=== PATIENT | male | born 1955 | race Caucasian/White ===

== ENCOUNTER 2016-11-12 15:56 | Observation (INO) | payer BC, OTHER ==
[~2016-11-12] VITALS: Ht 190.5 cm; Wt 120.8 kg
[2016-11-12] MEDS ORDERED: ALUMINUM/MAGNESIUM SUSP 30 ML UDC PO STA (16:06)
[2016-11-12] MEDS ORDERED: ASPIRIN 81 MG CHEW PO STA (16:06)
--- NOTE | 2016-11-12 16:13 | EMERGENCY ROOM VISIT NOTE ---
History Report prepared by Linh: Jaya Anderson Under the Supervision of: Dr. Lazaro David D.O. 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 Denies sob, nausea , lightheaded. [place] in 2001. History of Present Illness The patient is a 61 year old male who presents to the Emergency Room with complaints of intermittent left-sided chest pain that started an hour and a half ago. He describes the pain as a dull ache. The patient is here for a conference, and says that he was just waiting for lunch when the pain came on. He says that he did not do anything out of the ordinary today. He had a heart attack in 2001, and he says that the pain today is totally different than his pain during his heart attack. The pain during the heart attack was all in his neck. He notes that nothing changes his pain today. The patient says he has been mostly healthy since the heart attack, and has not taken nitro in 10 years. He has hardly gotten any chest pain since the heart attack. The patient' s last workup on his heart was more than a year ago, and it was done at [place]. He denies any nausea, shortness of breath, or leg pain or leg swelling. He took his daily medications this morning, but he did not take any medication for his chest pain. The patient has no chronic medical problems, other than a low platelet count. He drinks occasional alcohol, and is an ex-smoker. His last EKG was in July. Source of History: patient Onset: 1.5 hours ago Position: chest (left) Quality: ache, dull Timing: intermittent Associated Symptoms: No SOB, No vomiting Note: Associated symptoms: Denies leg pain or swelling. Review of Systems See HPI for pertinent positives & negatives. A total of 10 systems reviewed and were otherwise negative. Past Medical & Surgical Medical Problems: (1) Heart attack (2) Low platelet count Family History Heart disease Hypertension Social History Smoking Status: Former Smoker Smokeless Tobacco Use: No Alcohol Use: occasionally Housing Status: lives alone Occupation Status: employed Current/Historical Medications Scheduled Aspirin (Aspirin Ec), 81 MG PO DAILY Atenolol (Tenormin), 25 MG PO BID Atorvastatin (Lipitor), 40 MG PO DAILY Clopidogrel (Plavix), 75 MG PO DAILY Hydrochlorothiazide (Hydrochlorothiazide), 12.5 MG PO DAILY Isosorbide Mononitrate Ext Rel (Imdur Ext Rel), 1 TAB PO QAM Lisinopril (Zestril), 10 MG PO DAILY Omeprazole (Prilosec), 20 MG PO DAILY Paroxetine (Paxil), 20 MG PO DAILY Allergies Uncoded Allergies: BEE STINGS (Allergy, Intermediate, SWELLING, 11/12/16) Physical Exam Vital Signs Date Time Temp Pulse Resp B/P Pulse Ox O2 Delivery O2 Flow Rate FiO2 11/12/16 19:13 63 17 131/70 97 Room Air 11/12/16 17:13 61 116/71 96 Room Air 11/12/16 16:30 101/67 96 Room Air 11/12/16 16:19 62 19 124/70 96 Room Air 11/12/16 16:19 Room Air 11/12/16 16:19 Room Air 11/12/16 15:59 36.8 69 18 172/96 96 Room Air Physical Exam GENERAL: Patient is awake, alert, and in no acute distress. Patient is resting comfortably and showing no signs of anxiety EYES: The conjunctivae are clear. The pupils are round and reactive. EARS, NOSE, MOUTH AND THROAT: The nose is without any evidence of any deformity. Mucous membranes are moist tongue is midline NECK: The neck is nontender and supple. RESPIRATORY: Normal respiratory effort is noted there is no evidence of wheezing rhonchi or rales CARDIOVASCULAR: Regular rate and rhythm noted there no murmurs rubs or gallops normal S1 normal S2 GASTROINTESTINAL: The abdomen is soft. Bowel sounds are present in all quadrants. Abdomen is nontender MUSCULOSKELETAL/EXTREMITIES: There is no evidence of gross deformity full range of motion is noted in the hips and shoulders SKIN: Pedal edema bilaterally. NEUROLOGIC: Patient is awake alert and oriented x3. Medical Decision & Procedures ER Provider Diagnostic Interpretation: X-ray results as stated below per interpretation by me and the radiologist. CHEST ONE VIEW PORTABLE CLINICAL HISTORY: Chest pain. COMPARISON STUDY: No previous studies for comparison. FINDINGS: There is no pneumothorax or pleural effusion. There is mild enlargement of the cardiac silhouette. Pulmonary vascularity is normal. No consolidation is identified. IMPRESSION: 1. No acute cardiopulmonary findings. 2. Mild enlargement of the cardiac silhouette. Electronically signed by: Yash Cedeno M.D. 11/12/2016 5:10 PM Dictated Date/Time: 11/12/2016 5:09 PM Laboratory Results 11/12/16 16:25 Test 11/12/16 16:25 Immature Granulocyte % (Auto) 0.2 % White Blood Count 5.70 K/uL (4.8-10.8) Red Blood Count 4.28 M/uL (4.7-6.1) Hemoglobin 14.4 g/dL (14.0-18.0) Hematocrit 41.3 % (42-52) Mean Corpuscular Volume 96.5 fL (80-100) Mean Corpuscular Hemoglobin 33.6 pg (25-34) Mean Corpuscular Hemoglobin Concent 34.9 g/dl (32-36) Platelet Count 75 K/uL (130-400) Mean Platelet Volume 11.9 fL (7.4-10.4) Neutrophils (%) (Auto) 59.3 % Lymphocytes (%) (Auto) 28.2 % Monocytes (%) (Auto) 8.4 % Eosinophils (%) (Auto) 3.5 % Basophils (%) (Auto) 0.4 % Neutrophils # (Auto) 3.38 K/uL (1.4-6.5) Lymphocytes # (Auto) 1.61 K/uL (1.2-3.4) Monocytes # (Auto) 0.48 K/uL (0.11-0.59) Eosinophils # (Auto) 0.20 K/uL (0-0.5) Basophils # (Auto) 0.02 K/uL (0-0.2) Immature Granulocyte # (Auto) 0.01 K/uL (0.00-0.02) Platelet Estimate DECREASED Prothrombin Time 10.7 SECONDS (9.0-12.0) Prothromb Time International Ratio 1.0 (0.9-1.1) Activated Partial Thromboplast Time 24.7 SECONDS (21.0-31.0) Partial Thromboplastin Ratio 1.0 Anion Gap 7.0 mmol/L (3-11) Est Creatinine Clear Calc Drug Dose 129.3 ml/min Estimated GFR () 109.5 Estimated GFR (Non- 94.5 BUN/Creatinine Ratio 23.8 (10-20) Calcium Level 9.1 mg/dl (8.5-10.1) Total Bilirubin 0.5 mg/dl (0.2-1) Direct Bilirubin 0.2 mg/dl (0-0.2) Aspartate Amino Transf (AST/SGOT) 18 U/L (15-37) Alanine Aminotransferase (ALT/SGPT) 31 U/L (12-78) Alkaline Phosphatase 94 U/L (45-117) Total Creatine Kinase 50 U/L (39-308) Creatine Kinase MB 0.6 ng/ml (0.5-3.6) Creatine Kinase MB Ratio 1.2 (0-3.0) Total Protein 7.7 gm/dl (6.4-8.2) Albumin 4.2 gm/dl (3.4-5.0) Lipase 223 U/L (73-393) Laboratory results per my review. Medications Administered Medications (Trade) Dose Ordered Sig/Pati Route Start Time Stop Time Status Last Admin Dose Admin Nitroglycerin (Nitrostat Tab) 0.4 mg Q5M PRN SL 11/12/16 16:15 12/12/16 16:14 11/12/16 16:18 0.4 MG Aspirin (Aspirin Chew) 324 mg NOW STAT PO 11/12/16 16:06 11/12/16 16:07 DC 11/12/16 16:17 324 MG Al Hydroxide/Mg Hydroxide (Maalox Susp) 30 ml NOW STAT PO 11/12/16 16:06 11/12/16 16:07 DC 11/12/16 16:17 30 ML ECG Indication: chest pain Rate (beats per minute): 67 Rhythm: normal sinus Findings: ST depression (Lateral), no ectopy Comparison ECG Date: no prior available ED Course 1601: The patient was evaluated in room A2. A complete history and physical examination were performed. 1606: Ordered Maalox Susp 30 ml PO, Aspirin Chew 324 mg PO. 1615: Ordered Nitrostat Tab 0.4 mg SL PRN. 1756: I reevaluated the patient and he is resting comfortably. The patient verbally expressed understanding and agreement with the treatment plan. The patient will be evaluated for further treatment. 1836: I discussed the patient with Dr. Lunsford - [facility] [place] front end software developer. She will evaluate the patient for further treatment. Medical Decision Prior records/ancillary studies reviewed. Triage Nursing notes reviewed. The patient's history was concerning for chest pain. Differential diagnosis: Etiologies such as cardiac ischemia, aortic dissection, pulmonary embolism, pneumonia, pneumothorax, musculoskeletal, infections, pericarditis, myocarditis , esophageal rupture, gastrointestinal, as well as others were entertained. The patient is a 61-year-old male who presented to the emergency department for an evaluation of left-sided chest pain. The patient is a history of coronary artery disease and has had coronary artery stenting in the past. He states when he's had his acute coronary syndrome in the past he's had pain into his neck. The patient's EKG revealed some ST segment abnormalities in the low lateral leads. I was unable to get a previous EKG on this patient. I discussed the patient's laboratory and radiographic studies with him. I also discussed the limitations of the emergency department workup for chest pain with him. The patient was treated with aspirin and nitroglycerin in the emergency department. On subsequent reevaluation he was feeling much better. Because of his history and risk factors I discussed his case with the on-call [facility] hospitalist group. They've agreed to evaluate the patient in emergency department for further management and disposition. Consults Time Called: 1814 Consulting Physician: Dr. Jonn [place] front end software developer Returned Call: [phone] I discussed the patient with Dr. Jonn [place] front end software developer. She will evaluate the patient for further treatment. Impression Primary Impression: Chest pain Additional Impression: Abnormal EKG Scribe Attestation The scribe's documentation has been prepared under my direction and personally reviewed by me in its entirety. I confirm that the note above accurately reflects all work, treatment, procedures, and medical decision making performed by me. Departure Information Dispostion Being Evaluated By Hospitalist Referrals No Doctor, Assigned (PCP) Patient Instructions [facility] Problem Qualifiers Primary Impression: Chest pain Chest pain type: unspecified Qualified Codes: R07.9 - Chest pain, unspecified
[2016-11-12] MEDS ORDERED: NITROGLYCERIN 0.4 MG SL PER TAB CHARGE SL PRN (16:15)
[2016-11-12 16:42] LABS: PROTHROMBIN TIME (PATIENT) 10.7 SECONDS (9.0-12.0)
[2016-11-12 16:51] LABS: ALT/SGPT 31 U/L (12-78); AST/SGOT 18 U/L (15-37); BLOOD UREA NITROGEN 21 mg/dl (7-18); BUN/CREATININE RATIO 23.8 (10-20); CALCIUM 9.1 mg/dl (8.5-10.1); CARBON DIOXIDE 28 mmol/L (21-32); CHLORIDE 105 mmol/L (98-107); CREATININE 0.87 mg/dl (0.60-1.40); GLUCOSE 145 mg/dl (70-99); POTASSIUM 3.8 mmol/L (3.5-5.1); SODIUM 140 mmol/L (136-145)
[2016-11-12 16:56] LABS: ALKALINE PHOSPHATASE 94 U/L (45-117); BASO % 0.4 %; BASO ABS # 0.02 K/uL (0-0.2); CKMB/CK RATIO 1.2 (0-3.0); COMPLETE YES; EOS % 3.5 %; HEMATOCRIT 41.3 % (42-52); IG% 0.2 %; LYMPH % 28.2 %; LYMPH ABS # 1.61 K/uL (1.2-3.4); MEAN CELL VOLUME 96.5 fL (80-100); MEAN CORPUSCULAR HEMOGLOBIN 33.6 pg (25-34); MEAN CORPUSCULAR HGB CONC 34.9 g/dl (32-36); MEAN PLATELET VOLUME 11.9 fL (7.4-10.4); MONO % 8.4 %; NEUT % 59.3 %; PLATELET COUNT 75 K/uL (130-400); PLT ESTIMATE DECREASED; RED BLOOD COUNT 4.28 M/uL (4.7-6.1)
[2016-11-12] MEDS ORDERED: ATEN-173 PO (17:07)
[2016-11-12] MEDS ORDERED: PRLSR20 PO (17:07)
[2016-11-12] MEDS ORDERED: PARO1TAB27 PO (17:09)
[2016-11-12] MEDS ORDERED: ISOS30TA35 PO (17:10)
[2016-11-12] MEDS ORDERED: ATOR-24 PO (17:11)
--- NOTE | 2016-11-12 17:12 | DIAGNOSTIC IMAGING REPORT ---
CHEST ONE VIEW PORTABLE CLINICAL HISTORY: Chest pain. COMPARISON STUDY: No previous studies for comparison. FINDINGS: There is no pneumothorax or pleural effusion. There is mild enlargement of the cardiac silhouette. Pulmonary vascularity is normal. No consolidation is identified. IMPRESSION: 1. No acute cardiopulmonary findings. 2. Mild enlargement of the cardiac silhouette. Electronically signed by: Yash Cedeno M.D. 11/12/2016 5:10 PM Dictated Date/Time: 11/12/2016 5:09 PM
[2016-11-12] MEDS ORDERED: LISI-461 PO (17:13)
[2016-11-12] MEDS ORDERED: ASPI81TA28 PO (17:16)
[2016-11-12] MEDS ORDERED: HYDR12.55 PO (17:18)
[2016-11-12] MEDS ORDERED: CLOP1TAB15 PO (17:18)
[2016-11-12] MEDS ORDERED: MAGNESIUM HYDROXIDE SUSP 30 ML UDC PO PRN (19:30)
[2016-11-12] MEDS ORDERED: ACETAMINOPHEN 325 MG TAB PO PRN (19:30)
[2016-11-12] MEDS ORDERED: ONDANSETRON INJ 2 MG/ML 2 ML VIAL IV PRN (19:30)
--- NOTE | 2016-11-12 19:33 | History and Physical ---
History & Physical Date & Time of Service: Nov 12, 2016 at 19:19 Chief Complaint: Chest Pain Primary Care Physician: No Doctor, Assigned History of Present Illness Source: patient 61 y/o M c/o chest pain. 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 He was sitting at a table at a restaurant in [place] awaiting lunch when he developed sharp, L sided chest pain. It did not radiate to his jaw or LUE. He thought maybe he was just hungry so he tried to eat, but it persisted. Pt has a hx of [place] s/p cath and 3 stents in 2001. "I and they brought me back." At that time, pt had pain in his jaw and states it felt much different than the pain today. He was also nauseated with that episode and generally felt unwell. He follows with cardiology in [place] at [facility], Dr. Dirk Wisdom. Pt saw him about a month ago and there was no concern for anything at that time. He states his last stress test was a few years ago and negative. He states he recently lost weight and has been working on a more healthy lifestyle. Denies missing any medications while away from home. Pt states he has had low platelets for some time. He has had a bone marrow bx and it was neg. There is no known cause at this time. He states he gets Qweekly CBC to monitor and if needed, gets an injection of WinRho. His last injection was 3-4 weeks ago. He states his platelet counts are usually around 32K. This week it was 78K, which he reports is the highest it has been in some time. He has never required transfusion. Pt is feeling a bit improved now. He does still have mild L sided chest pain, but better. Pt denies fever, SOB, abd pain, n/v/c/d, LE pain or swelling. ROS as noted above, otherwise neg. Past Medical/Surgical History Medical Problems: (1) Heart attack Status: Resolved (2) Low platelet count Status: Chronic GERD Anxiety Hx of [place] with stents x3 in 2001 Family History Family history was reviewed; no changes noted. Social History Smoking Status: Former Smoker (quit in 2001) Smokeless Tobacco Use: No Alcohol Use: socially (weekends) Drug Use: none Occupational Status: employed Allergies Uncoded Allergies: BEE STINGS (Allergy, Intermediate, SWELLING, 11/12/16) Home Medications Scheduled Aspirin (Aspirin Ec), 81 MG PO DAILY Atenolol (Tenormin), 25 MG PO BID Atorvastatin (Lipitor), 40 MG PO DAILY Clopidogrel (Plavix), 75 MG PO DAILY Hydrochlorothiazide (Hydrochlorothiazide), 12.5 MG PO DAILY Isosorbide Mononitrate Ext Rel (Imdur Ext Rel), 1 TAB PO QAM Lisinopril (Zestril), 10 MG PO DAILY Omeprazole (Prilosec), 20 MG PO DAILY Paroxetine (Paxil), 20 MG PO DAILY Physical Exam Vital Signs Date Time Temp Pulse Resp B/P Pulse Ox O2 Delivery O2 Flow Rate FiO2 11/12/16 19:13 63 17 131/70 97 Room Air 11/12/16 17:13 61 116/71 96 Room Air 11/12/16 16:30 101/67 96 Room Air 11/12/16 16:19 62 19 124/70 96 Room Air 11/12/16 16:19 Room Air 11/12/16 16:19 Room Air 11/12/16 15:59 36.8 69 18 172/96 96 Room Air General Appearance: WD/WN, no apparent distress Respiratory/Chest: lungs clear, normal breath sounds Cardiovascular: regular rate, rhythm, no edema Abdomen/GI: non tender, soft Extremities/Musculoskelatal: no calf tenderness, no pedal edema Neurologic/Psych: alert, normal mood/affect, oriented x 3 Skin: normal color, warm/dry Diagnostics Laboratory Results Results Past 24 Hours Test 11/12/16 16:25 Range/Units White Blood Count 5.70 4.8-10.8 K/uL Red Blood Count 4.28 4.7-6.1 M/uL Hemoglobin 14.4 14.0-18.0 g/dL Hematocrit 41.3 42-52 % Mean Corpuscular Volume 96.5 80-100 fL Mean Corpuscular Hemoglobin 33.6 25-34 pg Mean Corpuscular Hemoglobin Concent 34.9 32-36 g/dl Platelet Count 75 130-400 K/uL Mean Platelet Volume 11.9 7.4-10.4 fL Neutrophils (%) (Auto) 59.3 % Lymphocytes (%) (Auto) 28.2 % Monocytes (%) (Auto) 8.4 % Eosinophils (%) (Auto) 3.5 % Basophils (%) (Auto) 0.4 % Neutrophils # (Auto) 3.38 1.4-6.5 K/uL Lymphocytes # (Auto) 1.61 1.2-3.4 K/uL Monocytes # (Auto) 0.48 0.11-0.59 K/uL Eosinophils # (Auto) 0.20 0-0.5 K/uL Basophils # (Auto) 0.02 0-0.2 K/uL RDW Standard Deviation 49.0 36.4-46.3 fL RDW Coefficient of Variation 14.0 11.5-14.5 % Immature Granulocyte % (Auto) 0.2 % Immature Granulocyte # (Auto) 0.01 0.00-0.02 K/uL Platelet Estimate DECREASED Prothrombin Time 10.7 9.0-12.0 SECONDS Prothromb Time International Ratio 1.0 0.9-1.1 Activated Partial Thromboplast Time 24.7 21.0-31.0 SECONDS Partial Thromboplastin Ratio 1.0 Sodium Level 140 136-145 mmol/L Potassium Level 3.8 3.5-5.1 mmol/L Chloride Level 105 98-107 mmol/L Carbon Dioxide Level 28 21-32 mmol/L Anion Gap 7.0 3-11 mmol/L Blood Urea Nitrogen 21 7-18 mg/dl Creatinine 0.87 0.60-1.40 mg/dl Est Creatinine Clear Calc Drug Dose 129.3 ml/min Estimated GFR () 109.5 Estimated GFR (Non- 94.5 BUN/Creatinine Ratio 23.8 10-20 Random Glucose 145 70-99 mg/dl Calcium Level 9.1 8.5-10.1 mg/dl Total Bilirubin 0.5 0.2-1 mg/dl Direct Bilirubin 0.2 0-0.2 mg/dl Aspartate Amino Transf (AST/SGOT) 18 15-37 U/L Alanine Aminotransferase (ALT/SGPT) 31 12-78 U/L Alkaline Phosphatase 94 45-117 U/L Total Creatine Kinase 50 39-308 U/L Creatine Kinase MB 0.6 0.5-3.6 ng/ml Creatine Kinase MB Ratio 1.2 0-3.0 Troponin I < 0.015 0-0.045 ng/ml Total Protein 7.7 6.4-8.2 gm/dl Albumin 4.2 3.4-5.0 gm/dl Lipase 223 73-393 U/L Diagnostic Radiology CXR neg for acute EKG Nonspecific ST changes Impression Assessment and Plan 61 y/o M who was admitted for observation for chest pain. Chest pain: atypical, improved somewhat with aspirin/nitro Trop neg x1, serials pending EKG noted CXR neg for acute PRP, Hb, WBC WNL Follows with cardiology in [facility] if needed T/C stress test if serial trops neg Low level of concern for PE given VSS, no SOB or LE swelling Continue meds from prior [place], continue plavix Thrombocytopenia: As noted above Pt states numbers are elevated from usual GERD: continue home meds Anxiety: continue plaxil Other: Full code AHA diet Avoiding rx DVT proph given likely short duration of stay and thrombocytopenia VTE Prophylaxis VTE Risk Assessment Done? Y/N: Yes Risk Level: Low
[2016-11-12] MEDS ORDERED: IV FLUIDS COMPLETED PRN (20:00)
[2016-11-12 20:30] VITALS: BP 134/85; PULSE 65; TEMP 37.2; O2SAT 96; Ht 190.5 cm; Wt 120.8 kg
[2016-11-12 23:56] VITALS: BP 125/66; PULSE 64; TEMP 37; O2SAT 96
[2016-11-13] VITALS (12 sets, daily range): BP systolic 101–126; BP diastolic 62–78; PULSE 48–71; TEMP 36.9–37.2; O2SAT 94–99
[2016-11-13] MEDS ORDERED: ASPIRIN 81 MG ECTAB PO SCH (09:00)
[2016-11-13] MEDS ORDERED: CLOPIDOGREL BISULFATE 75 MG TAB PO SCH (09:00)
[2016-11-13] MEDS ORDERED: ATORVASTATIN 40 MG TAB PO SCH (09:00)
[2016-11-13] MEDS ORDERED: HYDROCHLOROTHIAZIDE 25 MG TAB PO SCH (09:00)
[2016-11-13] MEDS ORDERED: PANTOprazole SOD 40 MG TAB PO SCH (09:00)
[2016-11-13] MEDS ORDERED: ISOSORBIDE MONONITRATE 30 MG TABCR PO SCH (09:00)
[2016-11-13] MEDS ORDERED: LISINOPRIL 10 MG TAB PO SCH (09:00)
[2016-11-13] MEDS ORDERED: PAROXETINE 20 MG TAB PO SCH (09:00)
[2016-11-13 10:54] LABS: HEMATOCRIT 41.6 % (42-52); MEAN CELL VOLUME 98.3 fL (80-100); MEAN CORPUSCULAR HEMOGLOBIN 32.9 pg (25-34); MEAN CORPUSCULAR HGB CONC 33.4 g/dl (32-36); RED BLOOD COUNT 4.23 M/uL (4.7-6.1); WHITE BLOOD COUNT 6.03 K/uL (4.8-10.8)
[2016-11-13 10:57] LABS: MEAN PLATELET VOLUME 12.7 fL (7.4-10.4); PLATELET COUNT 70 K/uL (130-400)
[2016-11-13] MEDS ORDERED: HEPARIN SOD (PORCINE) 1000 UNIT/ML 10 ML VIAL ONE (14:27)
[2016-11-13] MEDS ORDERED: NiCARDipine HCL INJ 2.5 MG/ML 10 ML AMP ONE (14:27)
--- NOTE | 2016-11-13 14:27 | Procedure Note ---
Pre-Mod Sedation Assessment General Date of Moderate Sedation: Nov 13, 2016. Vital Signs: Vital Signs Past 12 Hours Date Time Temp Pulse Resp B/P Pulse Ox O2 Delivery O2 Flow Rate FiO2 11/13/16 12:16 Room Air 11/13/16 11:52 37.2 64 18 106/71 94 Room Air 11/13/16 08:00 Room Air 11/13/16 07:52 36.9 48 18 114/74 96 Room Air 11/13/16 04:00 Room Air Review Cardiovascular: regular rate, rhythm, no edema Abdomen: normal bowel sounds, non tender Lungs: chest non-tender, lungs clear, normal breath sounds Airway Class: II Pre-Sedation Airway Assessment Oral Cavity: WNL Able to Visualize Vocal Cords: Yes Short Thick Neck: No Hx of Sleep Apnea: No Smoking Status: Former Smoker Mallampati Classification: Class III ASA Classification: Class II Procedure Planning Contraindications-for Mod Sed: None Yes Notes The planned sedation has been discussed with the patient and consent obtained. I have identified the patient, determined the appropriateness of sedation and have assessed the patient immediately prior to the procedure. All medicine(s) and interventions are by my order.
[2016-11-13] MEDS ORDERED: FENTANYL CITRATE INJ 50 MCG/1 ML 2 ML VIAL ONE (14:28)
[2016-11-13] MEDS ORDERED: MIDAZOLAM HCL 1 MG/ML 2ML VIAL ONE (14:28)
[2016-11-13] MEDS ORDERED: PERFLUTREN LIPID MICROSPHERE (DEFINITY) IV ONE (14:29)
[2016-11-13] MEDS ORDERED: NITROGLYCERIN/D5W 100MCG/ML 20ML SYR ONE (14:30)
--- NOTE | 2016-11-13 15:26 | Procedure Note ---
Post-Mod Sedation Assessment General Date of Moderate Sedation Nov 13, 2016. Vital Signs: Vital Signs Past 12 Hours Date Time Temp Pulse Resp B/P Pulse Ox O2 Delivery O2 Flow Rate FiO2 11/13/16 12:16 Room Air 11/13/16 11:52 37.2 64 18 106/71 94 Room Air 11/13/16 08:00 Room Air 11/13/16 07:52 36.9 48 18 114/74 96 Room Air 11/13/16 04:00 Room Air Review - Discharge Criteria Vital Signs Stable: Yes Alert/Oriented/Conversant: Yes Returned to Baseline Mental St: Yes Nausea Absent/Minimal: Yes Pain/Discomfort/Absent/Minimal: Yes Normal/Baseline Respirations: Yes Active Bleeding?: No Pt Received D/C Instructions: N/A Prescriptions Given: None Specific Proced. D/C Criteria Distal Pulses Present (Cardiac: Yes Groin site assessed-Card Cath: N/A Voided Prior To Discharge: N/A Discharged Patients Adult Escort/Transportation: Yes
--- NOTE | 2016-11-13 15:50 | Cardiac Catheterization ---
Procedure Note Procedure Date Nov 13, 2016. 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 Negrete Aircraft Steel Fabricator(s) Enoch Estimated Blood Loss 15 Medication(s) Fentanyl, Heparin, Nitroglycerin, Versed, Lidocaine 1% Summary of Findings Indication: Positive stress test Access: 6Fr Right Radial Artery Catheters: [place], JL3.5, Rashid, AR2 Findings: LM - 20% ostial stenosis LAD - Patent proximal to mid stents with up to 50-60% in-stent restenosis at take-off of 1st diagonal. 30-40% mid segment disease, distal luminal irregularities. 1st diagonal small, with 95% ostial stenosis. Moderate caliber 2nd diagonal with 50% ostial stenosis. Circumflex - Mild ostial disease, mid segment and OM2 with luminal irregularities. RCA - Dominant, large caliber vessel, patent mid segment stent with 20-30% in- stent restenosis, distal luminal irregularities. Mild disease in ostial PDA, and distal PL branches. LVEDP - 9 Arterial Closure: TR Band Summary: 1. Moderate to severe coronary artery disease - 50-60% mid LAD in-stent restenosis - 95% ostial stenosis small 1st diagonal, 50% ostial 2nd diagonal - Patent RCA stent 2. Normal intracardiac filling pressures Recommendations: 1st Diagonal is small vessel not amenable to PCI. Recommend continued medical management Continue prior long-term dual-antiplatelet therapy with ASA/Clopidogrel Continue current anti-anginal regimen with atenolol and imdur High-dose statin Follow-up with home wedding cake designer, Dr. Wisdom. Hemodynamics Rest Ao: 82/55/66 Final Ao: 93/60/75 LV: 81/9 Recommendations Medical therapy and/or Counseling Specimens None Radiation Exposure (mGy) 3336 Contrast (mls) 140 Fluids (cc crystalloids) 65 Drains none Anesthesia moderate (start 1434- end 1516) Procedural Complication(s) None Disposition [facility]U [facility] Data Cardiac Status Clinical evaluation leading to the procedure CAD Presntation: Positive Stress Test Anginal Classification: CCS II Heart Failure: No, NYHA Class: CCS I Cardiogenic Shock w/in 24Hrs: No Cardiac Arrest w/in 24Hrs: No Imaging studies past 6 months: Yes Stress studies past 6 months: Yes Standard Exercise Stress Test: No Stress Echocardiogram: Yes - Positive, Risk/Extent of Ischemia (Intermediate) Stress Testing w/SPECT MPI: No Cardiac CTA: No Coronary Anatomy Dominant: Right Left Main (% Stenosis): Ostial (10-20) LAD (% Stenosis): Mid (50-60) D1 (% Stenosis): Ostial (95) D2 (% Stenosis): Ostial (50) Circumflex (% Stenosis): Normal RCA (% Stenosis): Mid (20-30) Diagnostic Physician's Name: Kamlesh Negrete MD Status: Elective Closure Device Percutaneous Entry Location: Radial Closure Device: Radial Band Recommendations: Medical therapy and/or Counseling Intraprocedure Events Significant Dissection: No Perforation: No
[2016-11-13] MEDS ORDERED: SODIUM CHLORIDE 0.9% 1000ML 1,000 ML IV SCH (16:23)
[2016-11-13] MEDS ORDERED: ACETAMINOPHEN 325 MG TAB PO PRN (16:30)
--- NOTE | 2016-11-13 17:01 | EXERCISE STRESS ECHO ---
*NOTICE TO RECEIVING REPUBLICAN AGENCY This information is strictly Confidential and protected under [place] law. [place] law prohibits you from making any further disclosure of this information unless further disclosure is expressly permitted by the written consent of the person to whom it pertains or is authorized by law. A general authorization for the release of medical or other information is not sufficient for this purpose. Hospital accepts no responsibility if the information is made available to any other person, INCLUDING THE PATIENT. Interpretation Summary * Name: CHE EVANS Study Date: 11/13/2016 11:35 AM BP: 114/73 mmHg * Patient Location: C.2T\S\S242\S\2 HR: 55 * : 1955 (M/d/yyy) Gender: Male Height: 75 in * Age: 61 yrs Ethnicity: CA Weight: 266 lb * Ordering Physician: Aysha Heller * Referring Physician: Self, Referred * Performed By: [facility] * * Reason For Study: CHEST PAIN * BSA: 2.5 m2 * -- Conclusions -- * 1. Stress induced mild inferolateral hypokinesis concerning for ischemia. * 2. Positive stress EKG for ischemia with up to [address] depressions in inferior lateral leads. * 3. Above average functional capacity. Exercised 9:33 min, acheiving 10.9 METS and 86% MPHR. * 4. No exercise induced chest pain. Normal hemodynamic response to exercise. Schmid treadmill score -1. * 5. Normal resting LV size and function. EF 55-60%. Hypokinetic septum with rest and stress. Normal RV size and function. No significant valvular pathology. * 6. No prior studies for comparison. Procedure Details * ECHOEX, CPT #56342 * ECHO COLOR FLOW, CPT #10412 * ECHO DOPPLER, CPT #30379 * The study was technically difficult with many images being suboptimal in quality. * A contrast injection of Definity was performed to improve assessment of LV function. * Contrast was injected into an intravenous site in the left arm. * One vial of Definity ultrasound contrast was diluted in normal saline to a total volume of 10 ml. A total of '3' ml of solution was administered during imaging. * Lot # [id number] of Definity utilized for procedure. * Expiration date SEP 06. * The attending nurse who injected the contrast agent was REJI DUGAN CPL, RN. Left Ventricle * The left ventricle is grossly normal size. * There is mild concentric left ventricular hypertrophy. * Ejection Fraction = 55-60%. * Hypokinetic septum at rest and with stress. Mild inferolateral stress induced hypokinesis. Right Ventricle * The right ventricle is grossly normal size. * The right ventricular systolic function is normal as assessed by tricuspid annular plane systolic excursion (TAPSE) (normal >1.5 cm). Atria * The left atrium is mildly dilated. * Right atrium not well visualized. * No ASD detected; PFO is not assessed. Mitral Valve * The mitral valve is grossly normal. * There is no mitral valve stenosis. * Significant mitral regurgitation is absent. Tricuspid Valve * The tricuspid valve is not well visualized, but is grossly normal. * Significant tricuspid regurgitation is absent. Aortic Valve * The aortic valve is tricuspid. The leaflet thickness if normal. There is no aortic stenosis, and no significant insufficiency. * No hemodynamically significant valvular aortic stenosis. * There is no significant aortic regurgitation. Great Vessels * Borderline aortic root dilatation. Pericardium * There is no pericardial effusion. Stress Parameters * Normal baseline electrocardiogram. * Prior septal infarct * 2mm horizontal ST depressions in inferior leads lasting 4 minutes into recovery [address] depressions in V5, V6. * The stress portion of this study was personally supervised by the undersigned interpreting physician. * Rest heart rate was '55' BPM. * Rest blood pressure was '114/73' * Maximum heart rate achieved was 139 bpm. * Maximum heart rate was 86 % of maximum age-predicted heart rate. * Maximum blood pressure was '193/72' * Total exercise time was '09:33' * Maximum exercise MET level achieved was '10.90' METS * Maximum treadmill speed was '4.10' miles per hour. * Maximum treadmill elevation was '16.00'% grade. Left Ventricular Findings with Stress * The study was technically adequate with some images being suboptimal in quality. Left Ventricular Diastolic Function * Grade I diastolic dysfunction, (abnormal relaxation pattern). MMode 2D Measurements and Calculations IVSd 1.4 cm IVSs 1.8 cm LVIDd 5.3 cm LVIDs 3.1 cm LVPWd 1.5 cm LVPWs 1.3 cm IVS/LVPW 0.97 FS 41.4 % EDV(Teich) 135.4 ml ESV(Teich) 38.2 ml EF(Teich) 71.8 % EDV(cubed) 149.0 ml ESV(cubed) 30.0 ml EF(cubed) 79.8 % % IVS thick 29.3 % % LVPW thick -8.46 % LV mass(C)d 331.9 grams LV mass(C)dI 134.0 grams/m\S\2 LV mass(C)s 181.3 grams LV mass(C)sI 73.2 grams/m\S\2 SV(Teich) 97.3 ml SI(Teich) 39.3 ml/m\S\2 SV(cubed) 118.9 ml SI(cubed) 48.0 ml/m\S\2 Ao root diam 4.2 cm Ao root area 14.0 cm\S\2 LA dimension 4.1 cm LA/Ao 0.98 LVOT diam 2.0 cm LVOT area 3.1 cm\S\2 Doppler Measurements and Calculations MV E max mati 50.1 cm/sec MV A max mati 68.5 cm/sec MV E/A 0.73 MV P1/2t max mati 70.7 cm/sec MV P1/2t 78.2 msec MVA(P1/2t) 2.8 cm\S\2 MV dec slope 264.8 cm/sec\S\2 MV dec time 0.35 sec Ao V2 max 114.7 cm/sec Ao max PG 5.3 mmHg Ao max PG (full) 1.0 mmHg ALBERTINA(V,A) 2.8 cm\S\2 ALBERTINA(V,D) 2.8 cm\S\2 LV V1 max PG 4.2 mmHg LV V1 max 102.9 cm/sec PA V2 max 81.2 cm/sec PA max PG 2.6 mmHg
--- NOTE | 2016-11-13 17:01 | Discharge Instructions ---
Discharge Instructions Date of Service Nov 13, 2016. Admission Reason for Admission: Chest Pain Discharge Discharge Diagnosis / Problem: coronary artery disease Discharge Goals Goal(s): Decrease discomfort, Improve disease control, Diagnostic testing, Therapeutic intervention, Prevent Disease Progression Activity Recommendations Activity Limitations: resume your previous activity Lifting Limitations: none Exercise/Sports Limitations: none May Resume Sexual Activity: when tolerated Shower/Bathe: no limitations Driving or Machine Use: no limitations . Instructions / Follow-Up Instructions / Follow-Up #1 follow-up with her executive receptionist when he returned home #2 if you have chest pain at severe sudden onset, call 911 and return to the emergency department Current Hospital Diet Patient's current hospital diet: AHA Diet (Heart Healthy) Discharge Diet Recommended Diet: AHA Diet (Heart Healthy) Procedures Procedures Performed: Cardiac catheterization Pending Studies Studies pending at discharge: no Medical Emergencies . Who to Call and When: Medical Emergencies: If at any time you feel your situation is an emergency, please call 911 immediately. . Non-Emergent Contact Non-Emergency issues call your: Primary Care Provider, Egg Breaking Machine Operator Call Non-Emergent contact if: temperature is above 100.5, your pain is not controlled, your pain is worsening, your pain is unusual for you, your pain is concerning you, wound has increased drainage, wound has increased redness, wound has increased pain . . "Provider Documentation" section prepared by Abran Peres. . VTE Core Measure Inpt VTE Proph given/why not?: Treatment not indicated
--- NOTE | 2016-11-13 17:07 | Discharge Summary ---
Discharge Summary Date of Service Nov 13, 2016. Discharge Summary Admission Date: Nov 12, 2016 at 19:18 Discharge Date: Nov 13, 2016 Discharge Disposition: Home Principal Diagnosis: Chest pain with positive stress echocardiogram Secondary Diagnoses/Problems: Coronary artery disease Thrombocytopenia, chronic Procedures: Cardiac catheterization Vaccinations: None Consultations: None Pending Studies/Follow-Up: None Medication Reconciliation Continued Medications: Aspirin (Aspirin Ec) 81 Mg Tab 81 MG PO DAILY Atenolol (Tenormin) 25 Mg Tab 25 MG PO BID, TAB Atorvastatin (Lipitor) 40 Mg Tab 40 MG PO DAILY, TAB Clopidogrel (Plavix) 75 Mg Tab 75 MG PO DAILY, TAB Hydrochlorothiazide (Hydrochlorothiazide) 12.5 Mg Tab 12.5 MG PO DAILY, TAB Isosorbide Mononitrate Ext Rel (Imdur Ext Rel) 30 Mg Tabcr 1 TAB PO QAM, TAB Lisinopril (Zestril) 10 Mg Tab 10 MG PO DAILY, TAB Omeprazole (Prilosec) 20 Mg Capcr 20 MG PO DAILY, CAP Paroxetine (Paxil) 20 Mg Tab 20 MG PO DAILY, TAB Admission Information HPI (per Admitting provider): 61 y/o M c/o chest pain. Pt states he is here from [facility] for a conference at the [facility] for [facility] management. He was sitting at a table at a restaurant in [place] awaiting lunch when he developed sharp, L sided chest pain. It did not radiate to his jaw or LUE. He thought maybe he was just hungry so he tried to eat, but it persisted. Pt has a hx of ME s/p cath and 3 stents in 2001. "I and they brought me back." At that time, pt had pain in his jaw and states it felt much different than the pain today. He was also nauseated with that episode and generally felt unwell. He follows with cardiology in [facility] at [facility], Dr. Dirk Wisdom. Pt saw him about a month ago and there was no concern for anything at that time. He states his last stress test was a few years ago and negative. He states he recently lost weight and has been working on a more healthy lifestyle. Denies missing any medications while away from home. Pt states he has had low platelets for some time. He has had a bone marrow bx and it was neg. There is no known cause at this time. He states he gets Qweekly CBC to monitor and if needed, gets an injection of WinRho. His last injection was 3-4 weeks ago. He states his platelet counts are usually around 32K. This week it was 78K, which he reports is the highest it has been in some time. He has never required transfusion. Pt is feeling a bit improved now. He does still have mild L sided chest pain, but better. Pt denies fever, SOB, abd pain, n/v/c/d, LE pain or swelling. ROS as noted above, otherwise neg. Physical Exam (per Admitting): General Appearance: WD/WN, no apparent distress Respiratory/Chest: lungs clear, normal breath sounds Cardiovascular: regular rate, rhythm, no edema Abdomen/GI: non tender, soft Extremities/Musculoskelatal: no calf tenderness, no pedal edema Neurologic/Psych: alert, normal mood/affect, oriented x 3 Skin: normal color, warm/dry Hospital Course The patient is noted to the telemetry unit. Subsequent cardiac enzymes were negative. Based on the patient's past cardiac history, he underwent a stress echocardiogram which was positive. The positive stress test, he went underwent cardiac catheterization. Findings: LM - 20% ostial stenosis LAD - Patent proximal to mid stents with up to 50-60% in-stent restenosis at take-off of 1st diagonal. 30-40% mid segment disease, distal luminal irregularities. 1st diagonal small, with 95% ostial stenosis. Moderate caliber 2nd diagonal with 50% ostial stenosis. Circumflex - Mild ostial disease, mid segment and OM2 with luminal irregularities. RCA - Dominant, large caliber vessel, patent mid segment stent with 20-30% in- stent restenosis, distal luminal irregularities. Mild disease in ostial PDA, and distal PL branches. LVEDP - 9 Arterial Closure: TR Band Summary: 1. Moderate to severe coronary artery disease - 50-60% mid LAD in-stent restenosis - 95% ostial stenosis small 1st diagonal, 50% ostial 2nd diagonal - Patent RCA stent 2. Normal intracardiac filling pressures Recommendations: 1st Diagonal is small vessel not amenable to PCI. Recommend continued medical management Continue prior long-term dual-antiplatelet therapy with ASA/Clopidogrel Continue current anti-anginal regimen with atenolol and imdur High-dose statin Follow-up with [facility], Dr. Wisdom. The patient did not have recurrence of chest pain during his hospitalization including the stress echocardiogram. Following cardiac catheterization, results and findings were reviewed with the patient. He was given a disc of images to take back to his home [facility]. Discharge examination Alert and oriented. No acute distress. HEENT unremarkable Cardiac vascular regular rate and rhythm Lungs clear throughout with nonlabored respirations. No calf tenderness. No pedal edema. Total time spent on discharge = 20 This includes examination of the patient, discharge planning, medication reconciliation, and communication with other providers. Discharge Instructions See discharge instructions. He will follow-up with his supervisor [facility] [employer] when he returns home to [place] tomorrow.
--- NOTE | 2016-11-13 19:51 | CARDIOLOGY CONSULTATION ---
DATE OF CONSULTATION: 11/13/2016 CONSULTATION REQUESTED BY: Dr. Peres. REASON FOR CONSULTATION: Positive stress test. HISTORY OF PRESENT ILLNESS: Mr. Ram is a 61-year-old man with a history of coronary artery disease, status post prior [place] in 2001, treated with PCI and later repeat PCI for residual coronary artery disease who was admitted yesterday in the setting of atypical chest pain. The patient is from [place] and is in [facility] attending a conference. He states that he is usually followed by Dr. Dirk Louis at [facility] and last had a stress test a few years ago. In regards to his prior cardiac history he states that he initially presented with a STEMI back in 2001 and had a cardiac arrest prior to the hospital. He subsequently had a primary PCI and then several weeks later states he had 2 more stents placed. He has been largely chest pain free since that time and has had no additional cardiac catheterizations. Yesterday, the patient states he was at lunch eating when he developed sharp left-sided pain. The pain did not radiate. It was not associated with shortness of breath or diaphoresis. The pain persisted for about 30 minutes before it went away. He presented to the Emergency Department, where he was largely chest pain free, hemodynamically stable and electrically stable. EKG was unremarkable and initial troponins were negative x3. This morning he was sent for a stress test due to his history and symptoms. Stress test was reviewed at time of interview, he was noted to have [address] depressions in the inferior leads, [address] depressions in lateral leads that persisted 4 minutes into recovery. In addition, there was mild inferolateral hypokinesis induced with stress. PAST MEDICAL HISTORY: 1. Coronary artery disease as discussed above. 2. Hypertension. 3. GERD. 4. Anxiety. 5. Chronic low platelet counts, states that he has had bone marrow biopsies in the past, gets intermittent injections, states that his platelet count is around 32 at baseline, has been on dual antiplatelet therapy for years. FAMILY HISTORY: Denies any significant family history of coronary artery disease or premature cardiac . SOCIAL HISTORY: Former smoker, quit in 2001. Occasional alcohol. 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 ALLERGIES: ALLERGIC TO BEE STINGS. HOME MEDICATIONS: Include aspirin 81, atenolol 25, atorvastatin 40, Plavix 75, hydrochlorothiazide 12.5, isosorbide mononitrate 30 mg p.o. daily, lisinopril 10 mg daily, omeprazole 20 mg daily, paroxetine 20 mg daily. PHYSICAL EXAMINATION: VITAL SIGNS: Temperature 36.9, pulse 71, blood pressure 123/68, satting 97% on room air. GENERAL: The patient appears comfortable, no acute distress. HEENT: Sclerae are anicteric. Oropharynx is clear. Mucous membranes are moist. NECK: Supple with no lymphadenopathy. LUNGS: Clear to auscultation bilaterally. HEART: Regular rate and rhythm with no murmurs, rubs or gallops. ABDOMEN: Soft, nontender, nondistended with positive bowel sounds. EXTREMITIES: Warm. He has intact distal pulses including 2+ radial pulses bilaterally. SKIN: Shows no rashes or lesions. NEUROLOGIC: Nonfocal. PSYCHIATRIC: He is alert and oriented x3. Mood and affect are appropriate. LABORATORY DATA: White blood cell count 5.7, hemoglobin 14.4, platelets of 75. INR 1.0. Sodium 140, potassium 3.8, BUN 21, creatinine of 0.9. LFTs were within normal limits. Troponins were negative x3. Chest x-ray showed no acute cardiopulmonary findings. EKG showed normal sinus rhythm with nonspecific ST changes. Stress echo, exercised for 9 minutes and 33 seconds achieving 10.9 METS with no exercise-induced chest pain. He had inferolateral ST depressions up to 2 mm. Stress echo images showed overall increased LV function with mild inferolateral stress induced hypokinesis. IMPRESSION: 1. Positive stress test. 2. History of coronary artery disease, status post prior percutaneous coronary intervention and a prior myocardial infarction in the past. 3. Atypical chest pain. 4. Thrombocytopenia. PLAN: Patient here with episode of atypical chest pain episode yesterday. He has been chest pain free since that time. No evidence of acute coronary syndrome by EKG or cardiac markers. His stress test today is at least intermediate risk and suggestive of possible inferolateral ischemia. Discussed with patient that would feel cardiac catheterization warranted at some point. He wishes to have it done prior to heading back to [place]. Discussed risks, benefits and alternatives of the procedure and he is willing to proceed. Will plan to the cardiac catheterization via right radial wrist later today. Thank you for allowing us to participate in the care of this patient. Please contact with any questions. TONIA
== END 2016-11-13 18:45 | disposition home or self-care (01) ==
LOC: ENRESERVTM → ENRESERVDT → C.EDB 15:57 → C.2T 19:18
PROVIDERS: ADMIT Family Medicine; ATTEND Family Medicine
DX: R07.89 Other chest pain (principal); I25.10 Atherosclerotic heart disease of native coronary artery without angina pectoris; D69.6 Thrombocytopenia, unspecified; F41.9 Anxiety disorder, unspecified; I10 Essential (primary) hypertension; K21.9 Gastro-esophageal reflux disease without esophagitis; I25.2 Old myocardial infarction; Z87.891 Personal history of nicotine dependence; Z79.82 Long term (current) use of aspirin; Z82.49 Family history of ischemic heart disease and other diseases of the circulatory system